=== PATIENT | female | born 1990 | race Caucasian/White ===

== ENCOUNTER 2017-06-15 07:38 | Emergency (ER) | payer BC ==
--- NOTE | 2017-06-15 07:43 | EDM.PDOC ---
ED HPI GENERAL MEDICAL PROBLEM - General Chief Complaint: Respiratory Problem Stated Complaint: HARD TIME BREATHING Time Seen by Provider: 06/15/17 07:50 Source of Information: Reports: Patient History Limitations: Reports: No Limitations - History of Present Illness INITIAL COMMENTS - FREE TEXT/NARRATIVE: History of present illness: []Patient's had a cough for 2 days of sore throat, fevers and chills. Has a history of asthma and has used all her albuterol inhaler. Review of systems: As per history of present illness and below otherwise all systems reviewed and negative. Past medical history: As per history of present illness and as reviewed below otherwise noncontributory. Surgical history: As per history of present illness and as reviewed below otherwise noncontributory. Social history: No reported history of drug or alcohol abuse. Family history: As per history of present illness and as reviewed below otherwise noncontributory. Physical exam: General: Well developed, well nourished in NAD, hyperventilating HEENT: Atraumatic, normocephalic, pupils reactive, negative for conjunctival pallor or scleral icterus, mucous membranes moist, throat mildly erythematous without exudate , neck supple, nontender, trachea midline. No stridor, positive anterior cervical adenopathy on the right Lungs: Coarse to auscultation, breath sounds equal bilaterally without wheezing , chest nontender. Heart: S1S2, regular, negative for clicks, rubs, or JVD. Abdomen: Soft, nondistended, nontender. Negative for masses or hepatosplenomegaly. Negative for costovertebral tenderness. Pelvis: Stable nontender. Genitourinary: Deferred. Rectal: Deferred. Extremities: Atraumatic, negative for cords or calf pain. Neurovascular unremarkable. Neuro: Awake, alert, oriented. Cranial nerves II through XII unremarkable. Cerebellum unremarkable. Motor and sensory unremarkable throughout. Exam nonfocal. Diagnostics: [] Therapeutics: [] Impression: []Acute bronchitis Plan: []Tessalon pearls for cough, amoxicillin, prednisone and albuterol as directed. Follow-up with primary care or return here if symptoms worsen or change. Definitive disposition and diagnosis as appropriate pending reevaluation and review of above. Head Pain Score (Numeric/FACES): 5 - Related Data Allergies Allergy/AdvReac Type Severity Reaction Status Date / Time seasonal allergies Allergy Sneezing Uncoded 06/15/17 07:43 Home Meds: Home Meds Phentermine HCl 37.5 mg PO DAILY 05/07/16 [History] Albuterol Sulfate [Ventolin Hfa] 8 gm IH Q4HR #1 hfa.aer.ad 06/15/17 [Rx] Amoxicillin 500 mg PO BID 10 Days #20 tab 06/15/17 [Rx] Benzonatate [Tessalon Perle] 100 mg PO TID PRN #20 capsule 06/15/17 [Rx] predniSONE [Prednisone] 20 mg PO DAILY #5 tablet 06/15/17 [Rx] Past Medical History - Past Health History Medical/Surgical History: Denies Medical/Surgical History Respiratory History: Reports: Asthma Other Gastrointestinal History: Recent history of intermittent rectal bleeding Other Musculoskeletal History: hx: fracturing both wrists, both ankles Other Psychiatric History: Anxious about this but otherwise no Other Dermatologic History: None currently - Past Surgical History Musculoskeletal Surgical History: Reports: Other (See Below) Social & Family History - Family History Family Medical History: Noncontributory - Tobacco Use Smoking Status *Q: Never Smoker Years of Tobacco use: 2 - Recreational Drug Use Recreational Drug Use: No Drug Use in Last 12 Months: No - Living Situation & Occupation Occupation: Employed ED ROS GENERAL - Review of Systems Review Of Systems: See Below (See history of present illness) ED EXAM, GENERAL - Physical Exam Exam: See Below (See history of present illness) Course - Vital Signs Last Recorded V/S: Last Vital Signs Temp 98.3 F 06/15/17 07:44 Pulse 122 H 06/15/17 07:59 Resp 18 06/15/17 07:44 BP 117/86 06/15/17 07:44 Pulse Ox 95 06/15/17 07:59 - Re-Assessments/Exams Free Text/Narrative Re-Assessment/Exam: 06/15/17 08:01 Patient arrived hyperventilating secondary to severe cough. Using her albuterol inhaler frequently all night. Patient's vital signs showed tachycardia however O2 sats are normal. Patient was observed for brief time the ED and had a rapid decrease in her heart rate from 139-120 normal O2 sats. Patient is being discharged stable and will be calling her prescriptions at the pharmacy after she leaves here. Departure - Departure Time of Disposition: 08:00 Disposition: Home, Self-Care 01 Condition: Good Clinical Impression: Acute bronchitis Qualifiers: Bronchitis organism: unspecified organism Qualified Code(s): J20.9 - Acute bronchitis, unspecified - Discharge Information Prescriptions: Albuterol Sulfate [Ventolin Hfa] 8 gm IH Q4HR #1 hfa.aer.ad Amoxicillin 500 mg PO BID 10 Days #20 tab Benzonatate [Tessalon Perle] 100 mg PO TID PRN #20 capsule PRN Reason: Cough predniSONE [Prednisone] 20 mg PO DAILY #5 tablet Instructions: Acute Bronchitis, Adult, [id number] Referrals: PCP,None [Primary Care Provider] - Forms: ED Department Discharge Additional Instructions: The following information is given to patients seen in the emergency department who are being discharged to home. This information is to outline your options for follow-up care. We provide all patients seen in our emergency department with a follow-up referral. The need for follow-up, as well as the timing and circumstances, are variable depending upon the specifics of your emergency department visit. If you don't have a primary care physician on staff, we will provide you with a referral. We always advise you to contact your personal physician following an emergency department visit to inform them of the circumstance of the visit and for follow-up with them and/or the need for any referrals to a consulting specialist. The emergency department will also refer you to a specialist when appropriate. This referral assures that you have the opportunity for follow-up care with a specialist. All of these measure are taken in an effort to provide you with optimal care, which includes your follow-up. Under all circumstances we always encourage you to contact your private physician who remains a resource for coordinating your care. When calling for follow-up care, please make the office aware that this follow-up is from your recent emergency room visit. If for any reason you are refused follow-up, please contact the [facility] Emergency Department at and asked to speak to the emergency department charge nurse. Albuterol, Tessalon, prednisone and amoxicillin as directed follow-up with primary care physician return if symptoms worsen or change [facility] [address] [place] [id number]
[2017-06-15 08:17] VITALS: BP 143/77
== END 2017-06-15 08:14 | disposition home or self-care (01) ==
LOC: MW.ED 07:38
DX: J20.9 Acute bronchitis, unspecified (principal); Z79.899 Other long term (current) drug therapy
CPT/HCPCS: 99283; 99284

== ENCOUNTER 2017-12-28 19:08 | Emergency (ER) | payer BC | END 2017-12-28 19:32 | LOC: MW.ED 19:08 | DX: Z53.21 Procedure and treatment not carried out due to patient leaving prior to being seen by health care provider (principal) ==

== ENCOUNTER 2018-06-23 13:05 | Emergency (ER) | payer BC ==
--- NOTE | 2018-06-23 13:10 | EDM.PDOC ---
ED HPI GENERAL MEDICAL PROBLEM - General Chief Complaint: General Stated Complaint: SPOKE TO NURSE Time Seen by Provider: 06/23/18 13:05 Source of Information: Reports: Patient History Limitations: Reports: No Limitations - History of Present Illness INITIAL COMMENTS - FREE TEXT/NARRATIVE: HISTORY AND PHYSICAL: History of present illness: Patient is a 27 year old female who presents to the emergency room with concerns of an abscess to the upper medial groin/thigh. She states in the past she has had similar abscess I&D and has used oral antibiotics for management. A secondary concern today is of a postsurgical site to the inner right bicep area. She states she previously had a tattoo removed and received a burn as result of this. Dr. Crane had removed the scar area 2 months ago. She does have a linear postsurgical site which appears red. She is concerned this may be infected. She denies any fever, chills, chest pain, shortness of breath or cough. Denies any abdominal pain, nausea, vomiting, diarrhea or constipation. She denies any concerns of STDs (no vaginal discharge/bleeding, etc...). Review of systems: As per history of present illness and below otherwise all systems reviewed and negative. Past medical history: As per history of present illness and as reviewed below otherwise noncontributory. Surgical history: As per history of present illness and as reviewed below otherwise noncontributory. Social history: See social history for further information Family history: As per history of present illness and as reviewed below otherwise noncontributory. Physical exam: General: Well-developed and well-nourished 27-year-old female. Alert and oriented. Nontoxic appearing and in no acute distress. HEENT: Atraumatic, normocephalic, pupils equal and reactive bilaterally, negative for conjunctival pallor or scleral icterus, mucous membranes moist, TMs normal bilaterally, throat clear, neck supple, nontender, trachea midline. No drooling or trismus noted. No meningeal signs. No hot potato voice noted. Lungs: Clear to auscultation, breath sounds equal bilaterally, chest nontender. Heart: S1S2, regular rate and rhythm without overt murmur Abdomen: Soft, nondistended, nontender. Negative for masses or hepatosplenomegaly. Negative for costovertebral tenderness. Pelvis: Stable nontender. Genitourinary: This was done with consent and a chronic specialist at the bedside. External genitalia appears intact. She does have a small circular abscess to the distal aspect of her groin on the right upper medial thigh. The surrounding border of the circular abscess appears firm to touch although does have a fluctuant center. No surrounding erythema. Rectal: Deferred. Skin: Please see GENITOURINARY. Patient does have a postsurgical scar/incision at the brachial area inside the right upper bicep area. She does have keloid scarring at the site with mild erythema which she states is normal. Otherwise skin is Intact, warm, dry. No lesions or rashes noted. Extremities: Atraumatic, negative for cords or calf pain. Neurovascular unremarkable. Neuro: Awake, alert, oriented. Cranial nerves II through XII unremarkable. Cerebellum unremarkable. Motor and sensory unremarkable throughout. Exam nonfocal. Notes: The postsurgical keloid scar to the brachial area does appear erythematous which she states appears normal to her. I will obtain lab work at this time for completeness. 1% lidocaine was used to anesthetize the abscess area. Usual and customary procedures were followed for I&D. 5-10cc of purulent drainage was expressed from the site. Patient tolerated well. Lab work is unremarkable. Vitals remain stable. Supportive care measures were reviewed and discussed. Voices understanding and is agreeable to plan of care. Denies any further questions or concerns at this time. Diagnostics: CBC, CMP, Blood Culture Therapeutics: Lidocaine 1%, Tdap, Prescription: Bactrim DS Planada (#15) Impression: Abscess History of post surgical keloid Plan: 1. Keep both the postsurgical scar and abscess skin areas clean and dry. Continue to monitor for signs of improvement. He can do a sitz bath 1-2 times daily over the next several days for comfort. 2. Take the antibiotic as directed. Tylenol and/or ibuprofen as needed for pain management. 3. Please follow-up with your primary care provider as we discussed. Return to the ED as needed and as discussed. Definitive disposition and diagnosis as appropriate pending reevaluation and review of above. Buttock Pain Score (Numeric/FACES): 4 - Related Data Allergies Allergy/AdvReac Type Severity Reaction Status Date / Time tramadol Allergy Rash Verified 06/23/18 13:12 seasonal allergies Allergy Sneezing Uncoded 06/15/17 07:43 Home Meds: Home Meds Fluconazole [Diflucan] 150 mg PO ASDIRECTED 06/23/18 [History] Past Medical History - Past Health History Medical/Surgical History: Denies Medical/Surgical History Respiratory History: Reports: Asthma Other Gastrointestinal History: Recent history of intermittent rectal bleeding Other Musculoskeletal History: hx: fracturing both wrists, both ankles Other Psychiatric History: Anxious about this but otherwise no Other Dermatologic History: None currently - Past Surgical History Musculoskeletal Surgical History: Reports: Other (See Below) Social & Family History - Family History Family Medical History: Noncontributory - Living Situation & Occupation Occupation: Employed ED ROS GENERAL - Review of Systems Review Of Systems: ROS reveals no pertinent complaints other than HPI. ED EXAM, GENERAL - Physical Exam Exam: See Below (See dictation) Course - Vital Signs Last Recorded V/S: Last Vital Signs Temp 97.3 F 06/23/18 13:17 Pulse 78 06/23/18 13:17 Resp 16 06/23/18 13:17 BP 104/72 06/23/18 13:17 Pulse Ox 96 06/23/18 13:17 - Orders/Labs/Meds Orders: Active Orders 24 hr Category Date Time Status Vaccines to be Administered [RC] PER UNIT ROUTINE Care 06/23/18 13:27 Active COMPREHENSIVE METABOLIC PN,CMP [CHEM] Stat Lab 06/23/18 13:43 Received CULTURE BLOOD [BC] Stat Lab 06/23/18 13:43 Received CULTURE BLOOD [BC] Stat Lab 06/23/18 13:50 Received Blood Culture x2 Reflex Set [OM.PC] Stat Oth 06/23/18 13:27 Ordered Labs: Laboratory Tests 06/23/18 Range/Units 13:43 WBC 9.00 (4.0-11.0) K/uL RBC 4.54 (4.30-5.90) M/uL Hgb 13.8 (12.0-16.0) g/dL Hct 39.7 (36.0-46.0) % MCV 87.4 (80.0-98.0) fL MCH 30.4 (27.0-32.0) pg MCHC 34.8 (31.0-37.0) g/dL RDW Std Deviation 42.3 (28.0-62.0) fl RDW Coeff of [place] 13 (11.0-15.0) % Plt Count 350 (150-400) K/uL MPV 10.70 (7.40-12.00) fL Neut % (Auto) 63.2 (48.0-80.0) % Lymph % (Auto) 22.9 (16.0-40.0) % [place] % (Auto) 6.2 (0.0-15.0) % Eos % (Auto) 7.0 (0.0-7.0) % Baso % (Auto) 0.7 (0.0-1.5) % Neut # (Auto) 5.7 (1.4-5.7) K/uL Lymph # (Auto) 2.1 (0.6-2.4) K/uL [place] # (Auto) 0.6 (0.0-0.8) K/uL Eos # (Auto) 0.6 (0.0-0.7) K/uL Baso # (Auto) 0.1 (0.0-0.1) K/uL Nucleated RBC % 0.0 /100WBC Nucleated RBCs # 0 K/uL Meds: Medications Discontinued Medications Generic Name Dose Route Start Last Admin Trade Name Freq PRN Reason Stop Dose Admin Diphtheria/Tetanus/Acell Pertussis 0.5 ml 06/23/18 13:27 06/23/18 13:43 Adacel IM 06/23/18 13:28 0.5 ml .ONCE ONE Administration Lidocaine HCl 5 ml 06/23/18 13:27 06/23/18 13:45 Xylocaine-Mpf 1% INJECT 06/23/18 13:28 5 ml ONETIME ONE Administration Departure - Departure Time of Disposition: 14:11 Disposition: Home, Self-Care 01 Clinical Impression: Abscess, History of keloid of skin - Discharge Information Instructions: Skin Abscess Referrals: PCP,Unknown [Primary Care Provider] - Forms: ED Department Discharge Additional Instructions: The following information is given to patients seen in the emergency department who are being discharged to home. This information is to outline your options for follow-up care. We provide all patients seen in our emergency department with a follow-up referral. The need for follow-up, as well as the timing and circumstances, are variable depending upon the specifics of your emergency department visit. If you don't have a primary care physician on staff, we will provide you with a referral. We always advise you to contact your personal physician following an emergency department visit to inform them of the circumstance of the visit and for follow-up with them and/or the need for any referrals to a consulting specialist. The emergency department will also refer you to a specialist when appropriate. This referral assures that you have the opportunity for follow-up care with a specialist. All of these measure are taken in an effort to provide you with optimal care, which includes your follow-up. Under all circumstances we always encourage you to contact your private physician who remains a resource for coordinating your care. When calling for follow-up care, please make the office aware that this follow-up is from your recent emergency room visit. If for any reason you are refused follow-up, please contact the [facility] Emergency Department at and asked to speak to the emergency department charge nurse. [facility] [address] [place] [id number] [facility] [address] [place] [phone] 1. Keep both the postsurgical scar and abscess skin areas clean and dry. Continue to monitor for signs of improvement. He can do a sitz bath 1-2 times daily over the next several days for comfort. 2. Take the antibiotic as directed. Tylenol and/or ibuprofen as needed for pain management. 3. Please follow-up with your primary care provider as we discussed. Return to the ED as needed and as discussed. - My Orders Last 24 Hours: My Active Orders 06/23/18 13:27 Vaccines to be Administered [RC] PER UNIT ROUTINE Blood Culture x2 Reflex Set [OM.PC] Stat 06/23/18 13:43 COMPREHENSIVE METABOLIC PN,CMP [CHEM] Stat CULTURE BLOOD [BC] Stat 06/23/18 13:50 CULTURE BLOOD [BC] Stat - Assessment/Plan Last 24 Hours: My Active Orders 06/23/18 13:27 Vaccines to be Administered [RC] PER UNIT ROUTINE Blood Culture x2 Reflex Set [OM.PC] Stat 06/23/18 13:43 COMPREHENSIVE METABOLIC PN,CMP [CHEM] Stat CULTURE BLOOD [BC] Stat 06/23/18 13:50 CULTURE BLOOD [BC] Stat
[2018-06-23] MEDS ORDERED: Diphtheria,Pertussis(Acell),Tetanus Vaccine 0.5 ML Syringe IM ONE (13:27)
[2018-06-23 14:19] LABS: CHLORIDE,CL 102 mmol/L (98-107); SODIUM,NA 137 mmol/L (136-145)
[2018-06-23 14:34] VITALS: BP 110/71
== END 2018-06-23 14:33 | disposition home or self-care (01) ==
LOC: MW.ED 13:05
DX: L02.211 Cutaneous abscess of abdominal wall (principal); L91.0 Hypertrophic scar; Z23 Encounter for immunization; Z88.5 Allergy status to narcotic agent
CPT/HCPCS: 10060; 36415; 80053; 85025; 87040; 90471; 90715; 99283; J2001